=== PATIENT | female | born 1960 | race Caucasian/White ===

== ENCOUNTER 2020-01-05 13:26 | Emergency (ER) | payer OTHER ==
[2020-01-05 13:48] LABS: ABSOLUTE BASOPHILS # (AUTO) 0.1 10^3/uL (0.0-0.2); ABSOLUTE EOSINOPHILS # (AUTO) 0.2 10^3/uL (0.0-0.6); ABSOLUTE LYMPHOCYTES (AUTO) 3.7 10^3/uL (0.5-4.7); ABSOLUTE MONOCYTES (AUTO) 0.8 10^3/uL (0.1-1.4); ABSOLUTE NEUT (AUTO) 5.2 10^3/uL (1.7-8.2); BASOPHILS % (AUTO) 0.7 % (0-2); EOSINOPHILS % (AUTO) 1.9 % (0-6); HEMATOCRIT 45.4 % (36.0-47.0); HEMOGLOBIN 15.9 g/dL (12.0-15.5); LYMPHOCYTES % (AUTO) 36.8 % (13-45); MEAN CORPUSCULAR HEMOGLOBIN 30.8 pg (27.0-33.4); MEAN CORPUSCULAR HGB CONC 34.9 g/dL (32.0-36.0); MEAN CORPUSCULAR VOLUME 88 fl (80-97); PLATELET COUNT 338 10^3/uL (150-450); RED BLOOD COUNT 5.15 10^6/uL (3.72-5.28); RED CELL DISTRIBUTION WIDTH 13.5 % (11.5-14.0); SEGMENTED NEUTROPHILS % (AUTO) 52.6 % (42-78); TOTAL CELLS COUNTED % (AUTO) 100 %; WHITE BLOOD COUNT 9.9 10^3/uL (4.0-10.5)
[2020-01-05] MEDS ORDERED: METOPROLOL TARTRATE PF/INJ 5 MG/5 ML SDV IV ONE (13:50)
[2020-01-05] MEDS ORDERED: MORPHINE SULFATE 10 MG/ML INJ IV ONE (13:51)
[2020-01-05] MEDS ORDERED: ONDANSETRON HCL INJ/PF 4 MG/2 ML SDV IV ONE (13:52)
[2020-01-05 14:05] LABS: ALBUMIN 4.9 g/dL (3.5-5.0); ALKALINE PHOSPHATASE 131 U/L (38-126); ANION GAP 13 (5-19); ASPARTATE AMINO TRANSFERASE 35 U/L (14-36); BILIRUBIN,TOTAL 0.5 mg/dL (0.2-1.3); BLOOD UREA NITROGEN 14 mg/dL (7-20); CALCIUM 10.5 mg/dL (8.4-10.2); CARBON DIOXIDE 24 mmol/L (22-30); CHLORIDE 101 mmol/L (98-107); CREATINE KINASE 74 U/L (30-135); GLUCOSE 159 mg/dL (75-110); POTASSIUM 4.2 mmol/L (3.6-5.0); TOTAL PROTEIN 8.4 g/dL (6.3-8.2)
[2020-01-05] MEDS ORDERED: HEPARIN SOD (PORCINE) 1,000 UNIT/ML 10 ML VIAL IV ONE (14:07)
[2020-01-05] MEDS ORDERED: HEPARIN SODIUM,PORCINE/D5W 25,000 UNIT/250 ML RTUINJ IV PRN (14:07)
[2020-01-05] MEDS ORDERED: HEPARIN SODIUM,PORCINE/D5W 25,000 UNIT/250 ML RTUINJ IV ONE (14:12)
[2020-01-05 14:16] LABS: CREATINE KINASE MB 3.3 ng/mL (<4.55)
[2020-01-05 14:20] LABS: TROPONIN I 0.288 ng/mL
--- NOTE | 2020-01-05 14:20 | ER Document Report ---
ED Cardiac - General Chief Complaint: Chest Pain Stated Complaint: CHEST PAIN - Related Data Allergies/Adverse Reactions: No Known Allergies Allergy (Verified 01/05/20 13:36) Home Medications: xigduo; lisinopril; prevastatin; levothyroxine; omeprazole; fluticasone; novolog; victoza Past Medical History - Social History Smoking Status: Former Smoker Chew tobacco use (# tins/day): No Frequency of alcohol use: Occasional Drug Abuse: None Patient has suicidal ideation: No Patient has homicidal ideation: No Physical Exam - Vital signs Vitals: Temp Resp Pulse Ox 98.2 F 19 95 01/05/20 13:37 01/05/20 13:37 01/05/20 13:37 Course - Vital Signs Vital signs: Temp Pulse Resp BP Pulse Ox 98.2 F 21 H 126/99 H 95 01/05/20 13:37 01/05/20 14:00 01/05/20 13:39 01/05/20 14:00 - Laboratory Result Diagrams: 01/05/20 12:48 01/05/20 12:48 Laboratory results interpreted by me: 01/05/20 12:48 Hgb 15.9 H - Diagnostic Test Radiology reviewed: Image reviewed, Reports reviewed Radiology results interpreted by me: 01/05/20 14:09 Twelve-lead EKG done 01/05/2020 at 1328 shows sinus tachycardia rate of 101 consider posterior infarct with ST depressions noted in V1 V2 nonspecific ST depressions. Repeat EKG shows at time 1344 which is a right-sided EKG sinus tachycardia at rate of 129 consider right ventricular hypertrophy with secondary repolarization abnormality lateral infarct, age indeterminate and consider acute STEMI or lead placement. This is a right sided EKG. 01/05/20 14:20 Portable chest x-ray shows no acute process normal heart size no acute process noted. Discharge - Discharge Clinical Impression: Acute coronary syndromes Condition: Critical Disposition: [facility]
--- NOTE | 2020-01-05 14:57 | RADIOLOGY REPORT (SQ) ---
EXAM DESCRIPTION: CHEST SINGLE VIEW IMAGES COMPLETED DATE/TIME: 01/05/2020 2:47 pm REASON FOR STUDY: chest pain COMPARISON: None. EXAM PARAMETERS: NUMBER OF VIEWS: One view. TECHNIQUE: Single frontal radiographic view of the chest acquired. RADIATION DOSE: NA LIMITATIONS: None. FINDINGS: LUNGS AND PLEURA: No opacities, masses or pneumothorax. No pleural effusion. MEDIASTINUM AND HILAR STRUCTURES: No masses. Contour normal. HEART AND VASCULAR STRUCTURES: Heart normal in size. Normal vasculature. BONES: No acute findings. HARDWARE: None in the chest. OTHER: No other significant finding. IMPRESSION: NO ACUTE RADIOGRAPHIC FINDING IN THE CHEST. TECHNICAL DOCUMENTATION: JOB ID: [id number] 2010 [employer]- All Rights Reserved Reading location - IP/workstation name: [id number]
[2020-01-05 15:08] VITALS: BP 78/60
--- NOTE | 2020-01-05 15:46 | EKG REPORT ---
SEVERITY:- ABNORMAL ECG - SINUS TACHYCARDIA CONSIDER POSTERIOR INFARCT NONSPECIFIC ST DEPRESSION : Confirmed by: Jose Carlos Campos MD 05-Jan-2020 15:46:10
--- NOTE | 2020-01-05 15:46 | EKG REPORT ---
SEVERITY:- ABNORMAL ECG - SINUS TACHYCARDIA CONSIDER RVH W/ SECONDARY REPOL ABNORMALITY CONSIDER TRUE POST WALL WI, CLINICAL CORRELATION NEEDED. ABNRM R PROG, CONSIDER ASMI OR LEAD PLACEMENT : Confirmed by: Jose Carlos Campos MD 05-Jan-2020 15:45:56
[2020-01-05] MEDS ORDERED: CLOPIDOGREL BISULFATE 300 MG TABLET ONE (16:09)
--- NOTE | 2020-01-05 17:13 | ER Document Report ---
Entered by TONY BOSS SCRIBE 01/05/20 1415 Acting as scribe for:HONEY VITAL MD ED Cardiac - General Chief Complaint: Chest Pain Stated Complaint: CHEST PAIN Primary Care Provider: PEDRO MONTANA FNP [Primary Care Provider] - Follow up as needed Mode of Arrival: Medic Information source: Patient Notes: This 59-year-old female patient presents via EMS for complaints of chest pain which began this morning at 9:30 AM. Patient describes the pain as a sharp stabbing sensation as well as a chest heaviness described as "pressure". EMS administered 3 sublingual nitroglycerin sprays as well as a nitroglycerin drip in route with no change in her pain. Patient was given morphine here after arrival which did decrease her pain. Patient has had associated nausea and diaphoresis but denies vomiting. - Related Data Allergies/Adverse Reactions: No Known Allergies Allergy (Verified 01/05/20 13:36) Home Medications: xigduo; lisinopril; prevastatin; levothyroxine; omeprazole; fluticasone; novolog; victoza Past Medical History - General Information source: Patient, [facility] Records - Social History Smoking Status: Former Smoker Chew tobacco use (# tins/day): No Frequency of alcohol use: Occasional Drug Abuse: None Family History: CAD, Hyperlipidemia, Hypertension Patient has suicidal ideation: No Patient has homicidal ideation: No - Past Medical History Cardiac Medical History: Reports: Hx Hypercholesterolemia, Hx Hypertension Endocrine Medical History: Reports: Other - Insulin-dependent diabetes Surgical Hx: Negative Review of Systems - Review of Systems Constitutional: See HPI, Diaphoresis EENT: No symptoms reported Cardiovascular: See HPI, Chest pain Respiratory: No symptoms reported Gastrointestinal: See HPI, Nausea Genitourinary: No symptoms reported Female Genitourinary: No symptoms reported Musculoskeletal: No symptoms reported Skin: No symptoms reported Hematologic/Lymphatic: No symptoms reported Neurological/Psychological: No symptoms reported -: Yes All other systems reviewed and negative Physical Exam - Vital signs Vitals: Temp Resp Pulse Ox 98.2 F 19 95 01/05/20 13:37 01/05/20 13:37 01/05/20 13:37 - Notes Notes: Physical Exam: General: Alert, appears uncomfortable. HEENT: Normocephalic. Atraumatic. PERRL. Extraocular movements intact. Oropharynx clear. Neck: Supple. Non-tender. Respiratory: No respiratory distress. Clear and equal breath sounds bilaterally. Cardiovascular: Regular rhythm, tachycardic. Abdominal: Normal Inspection. Non-tender. No distension. Normal Bowel Sounds. Back: No gross abnormalities. Extremities: Moves all four extremities. Upper extremities: Normal inspection. Normal ROM. Lower extremities: Normal inspection. No edema. Normal ROM. Neurological: Normal cognition. AAOx4. Normal speech. Psychological: Anxious Skin: Diaphoretic Course - Re-evaluation Re-evalutation: 01/05/20 16:59 Patien presents with midsternal pressure and sharp pain in the left side of her chest. EMS had provided patient of 3 nitroglycerin sprays 4 baby aspirin's and a nitroglycerin drip prior to arrival to the ED. Patient chest pain continued despite their efforts by EMS. Twelve-lead EKG shows ST depressions 3 mm in V1 V2 with some sinus tachycardia. We continued the IV nitroglycerin drip gave patient 5 mg of Lopressor to control her tachycardia sinus tachycardia of 129. Patient also was given 4 mg of morphine, Zofran 4 mg. Also patient was given 300 mg of Plavix. Case was discussed with the receiving hospital site interpreter Dr. Ortiz. Inasmuch as her EKG did not suggest an acute STEMI, unstable angina, with acute coronary syndrome. the site interpreter [facility] accepted patient in route by aircraft. Prior to discharge from our facility patient's heart rate had decreased to the 90s normal sinus rhythm however blood pressure systolic dropped down to 70. Patient was given a bolus of normal saline to improve her blood pressure. Also heparin drip has been started bolus and drip prior to transfer from our department. Patient reports that her chest pain had resolved and that she was feeling much better prior to transfer. - Vital Signs Vital signs: Temp Pulse Resp BP Pulse Ox 98.2 F 98 20 78/60 L 97 01/05/20 15:05 01/05/20 15:05 01/05/20 15:05 01/05/20 15:05 01/05/20 15:05 - Laboratory Result Diagrams: 01/05/20 12:48 01/05/20 12:48 Laboratory results interpreted by me: 01/05/20 01/05/20 12:48 12:48 Hgb 15.9 H Glucose 159 H Calcium 10.5 H Alkaline Phosphatase 131 H Total Protein 8.4 H 01/05/20 17:10 Elevated troponin suggested patient has or is suffering from an acute myocardial infarction. - Diagnostic Test Radiology reviewed: Image reviewed, Reports reviewed Radiology results interpreted by me: 01/05/20 17:08 Chest x-ray normal no acute process 01/05/20 17:08 First EKG shows sinus tachycardia rate of 101. Marked ST flat depression noted in V1 V2 of 2 mm. No reciprocal changes noted Second EKG shows sinus tachycardia around [address] depression in V1 V2 a 3 mm and again noted without any acute reciprocal changes noted. This was a right-sided chest lead EKG. There was a suggestion that this could be a an acute STEMI. Critical Care Note - Critical Care Note Total time excluding time spent on procedures (mins): 30 - Acute coronary artery syndrome with unstable angina, hemodynamic monitoring. Chest pain control. Antiplatelet therapy and heparin therapy applied. Discharge - Discharge Clinical Impression: Acute coronary syndromes, Acute [place] Condition: Critical Disposition: [facility] Referrals: PEDRO MONTANA FNP [Primary Care Provider] - Follow up as needed I personally performed the services described in the documentation, reviewed and edited the documentation which was dictated to the scribe in my presence, and it accurately records my words and actions.
== END 2020-01-05 14:40 | disposition short-term general hospital (02) ==
LOC: ER 13:26
DX: I21.3 ST elevation (STEMI) myocardial infarction of unspecified site (principal); I24.9 Acute ischemic heart disease, unspecified; R07.9 Chest pain, unspecified; R11.0 Nausea; R61 Generalized hyperhidrosis; E78.00 Pure hypercholesterolemia, unspecified; I10 Essential (primary) hypertension; E11.9 Type 2 diabetes mellitus without complications; Z79.4 Long term (current) use of insulin
CPT/HCPCS: 93005; 96376; 99291; 96374; 96375; 36415; 82553; 82550; 85025; 85730; 80053; 84484; 71045; 93010; J3490 ×2; J1644 ×2; J2270; J2405

== ENCOUNTER → 2020-08-14 | Outpatient (CLI) | payer OTHER ==
[2020-08-14 10:19] LABS: ABSOLUTE EOSINOPHILS # (AUTO) 0.1 10^3/uL (0.0-0.6); ABSOLUTE LYMPHOCYTES (AUTO) 1.7 10^3/uL (0.5-4.7); ABSOLUTE MONOCYTES (AUTO) 0.4 10^3/uL (0.1-1.4); ABSOLUTE NEUT (AUTO) 5.3 10^3/uL (1.7-8.2); BASOPHILS % (AUTO) 0.4 % (0-2); EOSINOPHILS % (AUTO) 0.8 % (0-6); HEMATOCRIT 40.7 % (36.0-47.0); HEMOGLOBIN 13.9 g/dL (12.0-15.5); LYMPHOCYTES % (AUTO) 22.4 % (13-45); MEAN CORPUSCULAR HEMOGLOBIN 29.2 pg (27.0-33.4); MEAN CORPUSCULAR HGB CONC 34.1 g/dL (32.0-36.0); MEAN CORPUSCULAR VOLUME 86 fl (80-97); MONOCYTES % (AUTO) 5.5 % (3-13); PLATELET COUNT 275 10^3/uL (150-450); RED BLOOD COUNT 4.75 10^6/uL (3.72-5.28); RED CELL DISTRIBUTION WIDTH 13.5 % (11.5-14.0); SEGMENTED NEUTROPHILS % (AUTO) 70.9 % (42-78); TOTAL CELLS COUNTED % (AUTO) 100 %; WHITE BLOOD COUNT 7.5 10^3/uL (4.0-10.5)
[2020-08-14 10:32] LABS: INTERNATIONAL RATION (INR) 0.89; PROTHROMBIN TIME 12.3 SEC (11.4-15.4)
[2020-08-14 10:42] LABS: ALBUMIN 4.4 g/dL (3.5-5.0); ALKALINE PHOSPHATASE 162 U/L (38-126); ANION GAP 10 (5-19); ASPARTATE AMINO TRANSFERASE 58 U/L (14-36); BILIRUBIN,DIRECT 0.1 mg/dL (0.0-0.4); BILIRUBIN,TOTAL 0.7 mg/dL (0.2-1.3); BLOOD UREA NITROGEN 12 mg/dL (7-20); CALCIUM 10.1 mg/dL (8.4-10.2); CARBON DIOXIDE 28 mmol/L (22-30); CHLORIDE 101 mmol/L (98-107); GLUCOSE 101 mg/dL (75-110); POTASSIUM 4.3 mmol/L (3.6-5.0); TOTAL PROTEIN 7.6 g/dL (6.3-8.2)
--- NOTE | 2020-08-14 12:20 | RADIOLOGY REPORT (SQ) ---
EXAM DESCRIPTION: CHEST PA/LATERAL IMAGES COMPLETED DATE/TIME: 08/14/2020 9:35 am REASON FOR STUDY: PREOPERATIVE CARDIOVASCULAR EXAMINATION COMPARISON: 01/05/2020 EXAM PARAMETERS: NUMBER OF VIEWS: two views TECHNIQUE: Digital Frontal and Lateral radiographic views of the chest acquired. RADIATION DOSE: NA LIMITATIONS: none FINDINGS: LUNGS AND PLEURA: No opacities, masses or pneumothorax. No pleural effusion. MEDIASTINUM AND HILAR STRUCTURES: No masses or contour abnormalities. HEART AND VASCULAR STRUCTURES: Heart normal size. No evidence for failure. BONES: No acute findings. HARDWARE: None in the chest. OTHER: No other significant finding. IMPRESSION: NO SIGNIFICANT RADIOGRAPHIC FINDING IN THE CHEST. TECHNICAL DOCUMENTATION: JOB ID: [id number] 2010 [employer]- All Rights Reserved Reading location - IP/workstation name: [email or web address]
--- NOTE | 2020-08-14 18:02 | EKG REPORT ---
SEVERITY:- NORMAL ECG - SINUS RHYTHM : Confirmed by: Devan Alvarez MD 14-Aug-2020 18:01:38
== END ==
LOC: OD 08:38
PROVIDERS: ATTEND Orthopaedic Surgery
DX: Z01.810 Encounter for preprocedural cardiovascular examination (principal); Z01.811 Encounter for preprocedural respiratory examination; Z01.812 Encounter for preprocedural laboratory examination; R22.32 Localized swelling, mass and lump, left upper limb; I10 Essential (primary) hypertension; I21.9 Acute myocardial infarction, unspecified; E11.9 Type 2 diabetes mellitus without complications; Z87.891 Personal history of nicotine dependence
CPT/HCPCS: 36415; 71046; 80053; 83036; 85025; 85610; 93005; 93010

== ENCOUNTER 2020-09-09 22:14 | Emergency (ER) | payer OTHER ==
--- NOTE | 2020-09-10 09:06 | EKG REPORT ---
SEVERITY:- BORDERLINE ECG - SINUS RHYTHM BORDERLINE T ABNORMALITIES, ANTERIOR LEADS : Confirmed by: Devan Alvarez MD 10-Sep-2020 09:05:54
== END 2020-09-10 00:45 | disposition left against medical advice (07) ==
LOC: ER 22:14
DX: Z53.21 Procedure and treatment not carried out due to patient leaving prior to being seen by health care provider (principal)